=== PATIENT | female | born 1990 | race Caucasian/White ===

== ENCOUNTER 2017-01-12 19:40 | Emergency (ER) | payer OTHER ==
--- NOTE | ~2017-01-12 | US98 ---
[facility] A Service of [facility] & [facility] RADIOLOGY TEXT RESULTS PATIENT: LAWSON CÁRDENAS LOCATION: CFTX : 91 UNIT #: [id number] AGE: [address]: STEPHAN CRAIG APRN SEX: F ORDER DR: [id number] [facility] [address] [place], [place] [address] [id number] E MR#: [id number] Acc #: [id number] NAME: LAWSON CÁRDENAS. : 1990 SEX: F STUDY DATE/TIME: 01/12/2017 20:48 UNIT: [facility] ROOM: STUDY DESCRIPTION: US Pelvic Non-OB Complete Attending Physician: Stephan Craig Aprn Ordering Physician: Stephan Craig Aprn Primary Care Physician: Dashawn Fried Aprn MEDICAL IMAGING REPORT This report is preliminary unless electronic signature is present EXAM Pelvic sonogram HISTORY 26-year-old female left lower quadrant for 3 days. FINDINGS Real-time examination was performed utilizing endovaginal scanning. The examination demonstrates a normal appearing non-gravid uterus measuring 6.6 x 3.9 x 5.3 cm. The endometrium appears normal. There is a small amount of free fluid. Endometrial cavity measures just over 7.0 mm. Both ovaries are visualized and appear of normal size. Normal follicular cysts. Color Doppler demonstrates flow bilaterally. No adnexal masses. IMPRESSION Small amount of free fluid in the posterior cul-de-sac, nonspecific in a woman of reproductive years. The uterus and ovaries appear normal. Dictated by... Stephen Mary M.D. THIS IS AN ELECTRONICALLY VERIFIED REPORT Stephen Mary M.D. at 01/13/2017 5:04 PM Olivia TD: 01/13/2017 08:25 JOB #: [id number] MEDICAL IMAGING REPORT COPY
[2017-01-12 19:06] LABS: BASOPHIL# 0.1 X10e3 (0-0.3); EOSINOPHIL# 0.1 X10e3 (0-0.7); EOSINOPHIL% 1.3 % (0.0-7.0); HEMATOCRIT 40.7 % (35.0-45.0); HEMOGLOBIN 13.7 gm/dL (12.0-16.0); LYMPHOCYTE# 2.1 X10e3 (1.0-3.5); LYMPHOCYTE% 30.9 % (17.0-45.0); MEAN CELL VOLUME 84.6 FL (83-96); MEAN CORPUSCULAR HEMOGLOBIN 28.5 PG (28-34); MEAN CORPUSCULAR HGB CONC 33.7 g/dL (30-36); MEAN PLATELET VOLUME 8.5 FL (6.5-11.5); MONOCYTE# 0.6 X10e3 (0-1.0); MONOCYTE% 8.1 % (3.0-12.0); NEUTROPHIL# 4.1 X10e3 (1.5-7.1); NEUTROPHIL% 58.7 % (40-75); PLATELET COUNT 272 X10e3 (140-420); RED BLOOD COUNT 4.81 X10e (3.90-5.30); RED CELL DISTRIBUTION WIDTH 13.8 % (11.0-15.5)
[2017-01-12 19:07] LABS: DIFF IND NO
[2017-01-12 19:27] LABS: URINE SOURCE CLEAN CATCH
[2017-01-12 19:30] LABS: ALKALINE PHOSPHATASE 80 U/L (32-92); ALT (SGPT) 31 U/L (10-40); AST (SGOT) 27 U/L (10-42); BILIRUBIN, DIRECT 0.1 mg/dL (0.0-0.2); BILIRUBIN,INDIRECT 0.1 mg/dL (0.0-0.9); BILIRUBIN,TOTAL 0.2 mg/dL (0.2-2.0); BLOOD UREA NITROGEN 6 mg/dL (9-23); CALCIUM SERUM 9.1 mg/dL (8.4-10.2); CARBON DIOXIDE 29 mmol/L (22-31); CHLORIDE 103 mmol/L (100-111); CREATININE SERUM 0.8 mg/dL (0.6-1.4); GLOM FILT RATE Estimated ABOVE60 mL/min (>60); GLUCOSE FASTING 96 mg/dL (70-110); LIPASE 26 U/L (22-51); POTASSIUM 3.6 mmol/L (3.5-5.1); PROTEIN TOTAL SERUM 7.4 g/dL (6.0-8.3); SODIUM 139 mmol/L (135-145)
[2017-01-12 19:30] LABS: URINE APPEARANCE CLOUDY; URINE BILIRUBIN NEG (NEG); URINE BLOOD 2+ (NEG); URINE COLOR YELLOW; URINE GLUCOSE NEG (NEG); URINE KETONE NEG (NEG); URINE LEUKOCYTE ESTERASE TRACE (NEG); URINE NITRATE NEG (NEG); URINE PROTEIN NEG (NEG); URINE SPECIFIC GRAVITY 1.019 (1.003-1.035); URINE UROBILINOGEN 0.2 MG/DL (NEG)
[2017-01-12 19:33] LABS: CULTURE INDICATED? YES; URINE BACTERIA AUWI 2+ (NEGATIVE); URINE SQUAMOUS EPITHELIAL CELL FEW /[HPF]
[~2017-01-12 19:40] MED LIST: BACTRIM DS TABL1 TA1 PO; BACTRIM DS TABL1 TA2 PO; BENTYL10 MG PO; BENTYL20 M1 PO; BENTYL20 MG PO; CIPRO PO; DEPAKOTE ER PO; FAMOTIDINE PO; IBUPROFEN PO; K-DUR20 ME1 PO; LORTAB 5/500 TA1 TA1 PO; PRILOSEC20 M1 PO; ROBAXIN500 MG PO; VOLTAREN75 MG PO; ZOFRAN ODT4 MG PO; ZOFRAN ODT4 MG SL; ZOFRAN SL; ZOFRAN2 MG/M1 PO
[2017-01-12 19:48] LABS: URBCS1 AUWI 0-2 /[HPF] (0-2); UWBCS1 AUWI 0-2 (0-5)
[2017-01-16 20:26] LABS: CHLAMYDIA TRACH Not Detected (Not Detected); N GONOR Not Detected (Not Detected)
== END 2017-01-12 21:43 | disposition home or self-care (01) ==
LOC: CFTX 19:40
PROVIDERS: Emergency Medicine; Nurse Practitioner Family
DX: N76.0 Acute vaginitis (principal); E11.9 Type 2 diabetes mellitus without complications; F31.9 Bipolar disorder, unspecified; Z90.49 Acquired absence of other specified parts of digestive tract; Z88.8 Allergy status to other drugs, medicaments and biological substances
CPT/HCPCS: 36415; 76830; 76856; 80048; 80076; 81003; 83690; 84703; 85025; 87086; 87491; 87591; 87808; 87905; 99284; J0696

== ENCOUNTER 2017-05-17 04:19 | Emergency (ER) | payer OTHER ==
--- NOTE | ~2017-05-17 | EKG ---
PATIENT: LAWSON CÁRDENAS UNIT #: [id number] Ventricular Rate: 104 BPM Atrial Rate: 104 BPM P-R Interval: 170 ms QRS Duration: 72 ms Q-T Interval: 362 ms QTC Calculation(Bezet): 476 ms P Martinez: 34 degrees Calculated R Martinez: 46 degrees Calculated T Martinez: 20 degrees Diagnosis Line: Sinus tachycardia Diagnosis Line: Otherwise normal ECG Diagnosis Line: When compared with ECG of 09-JUN-2012 19:50, Diagnosis Line: No significant change was found Diagnosis Line: Confirmed by RUBINA GREEN MD ([id number]) on Diagnosis Line: 05/19/2017 11:03:26 AM INTERPRETING MD: PETER JAMES
[2017-05-17] MEDS ORDERED: DEPAKOTE PO (04:30)
[2017-05-17] MEDS ORDERED: ZOFRAN ODT4 M1 SL (04:31)
[2017-05-17] MEDS ORDERED: BUSPAR PO (04:31)
[2017-05-17 05:11] LABS: BASOPHIL# 0.1 X10e3 (0-0.3); EOSINOPHIL# 0.1 X10e3 (0-0.7); EOSINOPHIL% 1.6 % (0.0-7.0); HEMATOCRIT 40.2 % (35.0-45.0); HEMOGLOBIN 13.7 gm/dL (12.0-16.0); LYMPHOCYTE# 2.6 X10e3 (1.0-3.5); LYMPHOCYTE% 36.6 % (17.0-45.0); MEAN CELL VOLUME 85.8 FL (83-96); MEAN CORPUSCULAR HEMOGLOBIN 29.3 PG (28-34); MEAN CORPUSCULAR HGB CONC 34.2 g/dL (30-36); MEAN PLATELET VOLUME 8.6 FL (6.5-11.5); MONOCYTE# 0.5 X10e3 (0-1.0); MONOCYTE% 6.4 % (3.0-12.0); NEUTROPHIL# 3.9 X10e3 (1.5-7.1); NEUTROPHIL% 54.4 % (40-75); PLATELET COUNT 247 X10e3 (140-420); RED BLOOD COUNT 4.69 X10e (3.90-5.30); WHITE BLOOD COUNT 7.2 X10e3 (4.0-10.5)
[2017-05-17 05:12] LABS: DIFF IND NO
[2017-05-17 05:13] LABS: URINE SOURCE CLEAN CATCH
[2017-05-17 05:16] LABS: URINE APPEARANCE HAZY; URINE BILIRUBIN NEG (NEG); URINE BLOOD TRACE-INTACT (NEG); URINE COLOR YELLOW; URINE GLUCOSE NEG (NORM); URINE KETONE NEG (NEG); URINE LEUKOCYTE ESTERASE NEG (NEG); URINE NITRATE NEG (NEG); URINE PH 5.5 (5-8); URINE PROTEIN TRACE (NEG); URINE SPECIFIC GRAVITY >=1.030 (1.003-1.035); URINE UROBILINOGEN 0.2 MG/DL (NORM)
[2017-05-17 05:24] LABS: MICRO INDICATED? YES
[2017-05-17 05:25] LABS: CULTURE INDICATED? NO; URINE BACTERIA NEG (NEG); URINE MUCUS PRESENT; URINE SQUAMOUS EPITHELIAL CELL MANY /[HPF]
[2017-05-17 05:26] LABS: ALKALINE PHOSPHATASE 84 U/L (32-92); ALT (SGPT) 23 U/L (10-40); AST (SGOT) 25 U/L (10-42); BILIRUBIN, DIRECT <0.1 mg/dL (0.0-0.2); BILIRUBIN,INDIRECT 0.3 mg/dL (0.0-0.9); BILIRUBIN,TOTAL 0.4 mg/dL (0.2-2.0); BLOOD UREA NITROGEN 8 mg/dL (9-23); CALCIUM SERUM 8.7 mg/dL (8.4-10.2); CARBON DIOXIDE 22 mmol/L (22-31); CHLORIDE 103 mmol/L (100-111); CREATININE SERUM 0.8 mg/dL (0.6-1.4); GLOM FILT RATE Estimated 102.6 mL/min (>60); GLUCOSE FASTING 129 mg/dL (70-110); POTASSIUM 3.1 mmol/L (3.5-5.1); PROTEIN TOTAL SERUM 7.5 g/dL (6.0-8.3); SODIUM 134 mmol/L (135-145)
[2017-05-17 05:29] LABS: AMPHETAMINE NEG (NEG); BARBITURATES NEG (NEG); BENZODIAZEPINES NEG (NEG); COCAINE NEG (NEG); MARIJUANA NEG (NEG); OPIATES NEG (NEG); TRICYCLIC ANTIDEPRESSANTS NEG (NEG); U METHADONE NEG (NEG)
[2017-05-21 20:41] LABS: CHLAMYDIA TRACH Not Detected (Not Detected); N GONOR Not Detected (Not Detected)
== END 2017-05-17 06:50 | disposition home or self-care (01) ==
LOC: SED 04:19
PROVIDERS: Emergency Medicine
DX: N76.0 Acute vaginitis (principal); N73.9 Female pelvic inflammatory disease, unspecified; E87.6 Hypokalemia; F41.9 Anxiety disorder, unspecified; F31.9 Bipolar disorder, unspecified; Z88.8 Allergy status to other drugs, medicaments and biological substances
CPT/HCPCS: 36415; 80048; 80076; 80307; 81003; 84703; 85025; 87491; 87591; 87808; 87905; 93005; 96361; 96374; 96375; 99284; J0696; J2405

== ENCOUNTER 2017-05-26 07:44 | Emergency (ER) | payer OTHER ==
--- NOTE | ~2017-05-26 | CT4 ---
[facility] A Service [facility] RADIOLOGY TEXT RESULTS PATIENT: LAWSON CÁRDENAS LOCATION: SED : 91 UNIT #: [id number] AGE: [address]: Tra Puentes MD SEX: F ORDER DR: [id number] [address] [address] [id number] E MR#: [id number] Acc #: [id number] NAME: LAWSON CÁRDENAS. : 1990 SEX: F STUDY DATE/TIME: 05/26/2017 9:12 UNIT: SED ROOM: STUDY DESCRIPTION: CT Abd and Pelv Wo Cont Attending Physician: Tra Puentes M.D. Ordering Physician: Tra Puentes M.D. Primary Care Physician: Fariha Tamez [facility] IMAGING REPORT This report is preliminary unless electronic signature is present. EXAM Abdomen and pelvis CT without contrast HISTORY Left renal colic for the past 2 weeks. COMPARISON 09/30/2016 TECHNIQUE Axial images were obtained without contrast. The CT exam was performed with one or more of the following radiation dose reduction techniques: automatic exposure control, adjustment of mA and/or kV according to patient size, and iterative reconstruction. FINDINGS The liver shows generalized fatty infiltration. The spleen and pancreas are normal in size. No hydronephrosis. No kidney stones. The adrenal glands are normal. There is no evidence of retroperitoneal adenopathy or ascites and no distended bowel loops are seen. The patient has had previous appendectomy. In the pelvis there is no evidence of adenopathy, mass or fluid collection. The uterus is retroverted. IMPRESSION Negative except for fatty infiltration of the liver. No evidence of stone disease or obstruction. Dictated by... César Pablo M.D. [facility] A Service [facility] RADIOLOGY TEXT RESULTS PATIENT: LAWSON CÁRDENAS LOCATION: SED : 91 UNIT #: [id number] AGE: [address]: Tra Puentes MD SEX: F ORDER DR: THIS IS AN ELECTRONICALLY VERIFIED REPORT César Pablo M.D. at 05/27/2017 4:55 PM YOSI/taryn TD: 05/26/2017 14:52 JOB #: [id number] MEDICAL IMAGING REPORT Page 1 of 1
[~2017-05-26 07:44] MED LIST changes: +BUSPAR PO; +DEPAKOTE PO; +ZOFRAN ODT4 M1 SL
[2017-05-26 08:12] LABS: URINE APPEARANCE CLEAR; URINE BILIRUBIN NEG (NEG); URINE BLOOD 1+ (NEG); URINE COLOR YELLOW; URINE GLUCOSE NEG (NORM); URINE KETONE NEG (NEG); URINE LEUKOCYTE ESTERASE NEG (NEG); URINE NITRATE NEG (NEG); URINE PH 5.5 (5-8); URINE PROTEIN NEG (NEG); URINE SPECIFIC GRAVITY >=1.030 (1.003-1.035); URINE UROBILINOGEN 0.2 MG/DL (NORM)
[2017-05-26 08:13] LABS: MICRO INDICATED? YES; URINE SOURCE CATH
[2017-05-26 08:21] LABS: CULTURE INDICATED? YES
[2017-05-26 08:22] LABS: URINE BACTERIA 1+ (NEG)
[2017-05-26 08:23] LABS: URINE MUCUS PRESENT; URINE SQUAMOUS EPITHELIAL CELL MODERATE /[HPF]; URINE YEAST PRESENT
== END 2017-05-26 10:29 | disposition home or self-care (01) ==
LOC: SED 07:44
PROVIDERS: Emergency Medicine
DX: B37.9 Candidiasis, unspecified (principal); R11.2 Nausea with vomiting, unspecified; F31.9 Bipolar disorder, unspecified; F43.10 Post-traumatic stress disorder, unspecified; Z90.49 Acquired absence of other specified parts of digestive tract; Z88.8 Allergy status to other drugs, medicaments and biological substances; Z88.6 Allergy status to analgesic agent; Z79.899 Other long term (current) drug therapy
CPT/HCPCS: 51701; 74176; 81003; 84703; 87086; 99284